=== PATIENT | female | born 1970 | race Caucasian/White ===

== ENCOUNTER 2021-11-13 16:30 | Emergency (ER) | payer BC, SELFPAY ==
[2021-11-13 16:35] VITALS: BP 136/93; PULSE 77; RESP 16; TEMP 37; O2SAT 97
--- NOTE | 2021-11-14 15:47 | ED_ITS ---
HPI - URI/Sore Throat General Chief Complaint: Cough Stated Complaint: Cough Time Seen by Provider: 11/13/21 16:38 Source: patient and RN notes reviewed Mode of arrival: ambulatory Limitations: no limitations History of Present Illness HPI Narrative: 51-year-old woman arise with concern cough. Apparently the colleagues at work are worried that maybe she has bronchitis. She is here to get some control of this cough and be able to sleep better. She is coughing to the point of gagging/dry heaving. She has also started developed right ear feeling plugged and ringing. She has not been spending time swimming though she did try to clean out her ear by leading shower water run into it. Did do a home COVID test which was negative. She is not vaccinated for COVID. Is up-to-date on other immunizations. She describes the cough is dry. No chest pain no fever. Cough is worse while on her back trying to sleep and in the morning. She does smoke a half a pack a day. Has not cut back recently. He is not short of air actually. Denies seasonal/environmental allergies. The cough seems to be though inspired via tickling in her throat and then ?gets going?. She did have a hoarse voice earlier on but when acknowledged that here she says it was worse. has had a couple days of symptoms. Did use some ?ear ringing drops? purchased [id number] at [employer]. Other treatment has included DayQuil, NyQuil, phenylephrine, possibly Claritin? Related Data Previous Rx's Medication Instructions Recorded benzonatate 200 mg capsule 200 mg PO TID #15 cap 11/13/21 prednisone 20 mg tablet See Rx Instructions .ROUTE 11/13/21 .COMPLEX #12 tab Allergies Allergy/AdvReac Type Severity Reaction Status Date / Time No Known Drug Allergies Allergy Verified 11/13/21 16:41 Review of Systems Status of ROS: Reports: 10 or more systems reviewed and unremarkable except as noted in History and below [facility] Medical History No significant past medical history Surgical History No significant past surgical history Social History Smoking Status: Current every day smoker What tobacco products do you use: cigarettes How often do you have a drink containing alcohol: 4 or more times a week How many standard drinks containing alcohol do you have on a typical day: 3 or 4 How often do you have six or more drinks on one occasion: Monthly AUDIT-C Alcohol total score: 7 Non-prescribed substance use: denies use service: No Exam Narrative: Exam Narrative: General-well nourished. Calm. Breathing easily. Tanned. Carefully casually groomed. Mildly hoarse/laryngitic voice. HEENT-does sound a little congested-she attributes this to coughing-no facial swelling erythema or tenderness. Left TM is clear right TM looks to be normal as well though mostly obscured by soft cerumen. I do not appreciate edematous changes in the ear canal. The right TM is the 1 that she has been complaining of. There is no tragus tenderness no tenderness to movement of the pinna. Oropharynx with some cobblestoning posteriorly. Neck-supple. No LA. Back/lungs-equal expansion excursion. Clear. CV-RRR no MRG. Extremities-appear to be well perfused. Moving all extremities without difficulty. Const: Vital Signs, click to edit/add: Vital Signs - 24 hr 11/13/21 16:35 Temperature 98.6 F Pulse Rate [Left P ulse Oximeter] 77 Respiratory Rate 16 Blood Pressure [Ri ght Upper Arm] 136/93 H Pulse Oximetry 97 Course Course Hospital Course: Acceptable vitals. No particular distress. No treatments were given. Vital Signs Vital signs: Initial Vital Signs Temperature 98.6 F 11/13/21 16:35 Temperature Source Temporal Artery Scan 11/13/21 16:35 Pulse Rate 77 11/13/21 16:35 Respiratory Rate 16 11/13/21 16:35 Blood Pressure 136/93 H 11/13/21 16:35 Blood Pressure Mean 107 11/13/21 16:35 Pulse Oximetry 97 11/13/21 16:35 Oxygen Delivery Method 11/13/21 16:35 Vital Signs Temperature 98.6 F 11/13/21 16:35 Pulse Rate 77 11/13/21 16:35 Respiratory Rate 16 11/13/21 16:35 Blood Pressure 136/93 H 11/13/21 16:35 Pulse Oximetry 97 11/13/21 16:35 Temperature 98.6 F 11/13/21 16:35 Pulse Rate 77 11/13/21 16:35 Respiratory Rate 16 11/13/21 16:35 Blood Pressure 136/93 H 11/13/21 16:35 Pulse Oximetry 97 11/13/21 16:35 MDM - URI/Sore Throat MDM Narrative Medical decision making narrative: Appears to have developed a nonspecific viral URI. Complicated by smoking. Perhaps there was some barotrauma to her ear during 1 of these coughing episodes. I did offer to clear out the right ear to explore further; she declined at this time. I did discuss [id number] aids that might be useful in this regard. Please see discharge further recommendations. Additionally diphenhydramine might be drying and help with sleep/cough. We did discuss codeine containing cough syrup but initially prefer to avoid at this time. Prescriptions for benzonatate and prednisone. Discharge Plan Discharge Clinical Impression: Cough, Laryngitis Patient Disposition: Home, Self-Care Condition: Unchanged Additional Instructions: stay well-hydrated. Consider sleeping under the mist of a cool mist humidifier. Maybe menthol vapors in the room would be good. pseudoephedrine might be helpful for drying and decongestion Therefore might help with that tickle. Comes in a 12 hour formulation. might try sucking on ice chips? do what you can to quit smoking :) Prescriptions: New benzonatate 200 mg capsule 200 mg PO TID Qty: 15 0RF prednisone 20 mg tablet See Rx Instructions .ROUTE .COMPLEX Qty: 12 0RF Rx Instructions: take 60 mg for days 1 and 2 and then 40 mg days 3 through 5 Stand Alone Forms: [employer] Info Instructions
== END 2021-11-13 18:03 | disposition home or self-care (01) ==
LOC: ED 17:58
PROVIDERS: Emergency Provider Family Medicine
DX: J04.0 Acute laryngitis (principal); R05.9 Cough, unspecified
CPT/HCPCS: 99282; 99283; 99284